=== PATIENT | female | born 2000 | race Caucasian/White ===

== ENCOUNTER → 2021-05-30 14:40 | Outpatient (CLI) | payer BC, SELFPAY ==
--- NOTE | ~2021-05-30 | US_ITS ---
EXAMINATION: US transvaginal DATE: 05/30/2021 15:01 INDICATION: Missing IUD strings TECHNIQUE: Multiple endovaginal sonographic images of the pelvis were obtained. COMPARISON: 11/21/2018 FINDINGS: The uterus measures 7.7 x 2.8 x 4.4 cm. The endometrial complex measures 2-3 mm mm in thickness. Lorna ear shadowing T-shaped IUD in expected position within the endometrial canal. The right ovary measure s 2.5 x 1.8 x 2.5 cm. The left ovary measures 3.3 x 2.5 x 2.7 cm. 1.7 similar anechoic left ovarian c yst/follicle. Hall flow identified in both ovaries on color Doppler. There is no free fluid in the pelvis. IMPRESSION: 1. IUD in expected position within the endometrial canal. Reviewed, dictated and finalized at location B.
== END ==
PROVIDERS: Visit Provider Obstetrics & Gynecology Gynecology
DX: R10.12 Left upper quadrant pain (principal); Z97.5 Presence of (intrauterine) contraceptive device
CPT/HCPCS: 76830

== ENCOUNTER 2021-09-29 16:15 | Outpatient (CLI) | payer BC, SELFPAY ==
--- NOTE | ~2021-09-29 | US_ITS ---
EXAMINATION: US pelvic complete w TV DATE: 09/29/2021 16:50 INDICATION: IUD. Evaluate position. Comparison:Ultrasound dated 05/30/2021 TECHNIQUE: Multiple transabdominal and endovaginal sonographic images of the pelvis performed. FINDINGS: The uterus measures 7.7 x 3.1 x 4.5 cm. As an IUD in expected position in the endometrium. The endometrial complex measures 3 mm. The right ovary measures 2.5 x 2.5 x 3 cm and the left ovary measures 2.6 x 1.5 x 2.5 cm. There are small follicles in each ovary. There is a complicated cyst of the right ovary measuring up to 1.4 cm. Normal doppler signal in both ovaries. There is no free fluid in the pelvis. There are no abnormal masses seen on either side. IMPRESSION: 1. Complicated right ovarian cyst measuring 1.4 cm. 2: IUD in expected position in the endometrium. Reviewed, dictated and finalized at location A.
== END 2021-09-29 16:16 | disposition home or self-care (01) ==
PROVIDERS: Visit Provider Nurse Practitioner
DX: R10.2 Pelvic and perineal pain (principal); N83.201 Unspecified ovarian cyst, right side; Z97.5 Presence of (intrauterine) contraceptive device
CPT/HCPCS: 76830; 76856